=== PATIENT | male | born 1990 | race Caucasian/White ===

== ENCOUNTER → 2020-04-23 12:43 | Outpatient (CLI) | payer OTHER, SELFPAY ==
--- NOTE | 2020-04-23 12:47 | DI.RAD.S_ITS ---
PROCEDURE: XR RIBS LT MIN 3V W CXR1V INDICATIONS: l rib pain TECHNIQUE: 3 views of the left ribs were acquired, along with a single view chest. COMPARISON: None. FINDINGS: Surgical changes and devices: None. Bones and chest wall: There is a nondisplaced fracture seen involving the left posterolateral 8th rib. No additional fractures or dislocations. No suspicious bony lesions. Overlying soft tissues appear unremarkable. Lungs and pleura: No pleural effusions or pneumothorax. Lungs appear clear. Mediastinum: Mediastinal contours appear normal. Heart size is normal. IMPRESSION: There is a nondisplaced fracture seen involving the left posterolateral 8th rib. No pneumothorax is seen. Dictated by: Ronal Boswell M.D. on 04/23/2020 at 12:19 Approved by: Ronal Boswell M.D. on 04/23/2020 at 12:21
== END ==
PROVIDERS: Referring Provider Physician Assistant; Visit Provider Physician Assistant
DX: S22.32XA Fracture of one rib, left side, initial encounter for closed fracture (principal); R07.81 Pleurodynia
CPT/HCPCS: 71101